=== PATIENT | male | born 1980 | race Caucasian/White ===

== ENCOUNTER 2016-06-24 09:56 | Emergency (ER) | payer MEDICAID ==
[~2016-06-24] VITALS: Ht 175.3 cm; Wt 113.4 kg
[2016-06-24 10:06] VITALS: BP 108/70
--- NOTE | 2016-06-24 10:12 | NUR ---
[facility] in [facility] - 06/24/16 at 1014 by [email or web address] Patient ambulated to bed 7. RN evaluating patient at bedside.
--- NOTE | 2016-06-24 10:13 | NUR ---
Patient ambulated to bed 4. RN evaluating patient at bedside.
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
[2016-06-24] MEDS ORDERED: diphenhydrAMINE 50 MG/ML VIAL IM ONE (10:35)
[2016-06-24] MEDS ORDERED: ONDANSETRON 4 MG/2 ML VIAL IM ONE (10:35)
[2016-06-24] MEDS ORDERED: NACL 0.9% 1,000 ML IV ONE (11:20)
--- NOTE | 2016-06-24 12:07 | NUR ---
PT SLEEPING COMFORTABLY IN BED AT THIS TIME, WILL CONTINUE TO MONITOR
[2016-06-24 12:17] VITALS: BP 115/72
== END 2016-06-24 12:16 | disposition home or self-care (01) ==
LOC: MED 09:56
DX: G44.209 Tension-type headache, unspecified, not intractable (principal); K21.9 Gastro-esophageal reflux disease without esophagitis
CPT/HCPCS: 96361; 96374; 96375; 99284; J1200; J2405; J7030

== ENCOUNTER 2022-01-06 16:31 | Emergency (ER) | payer OTHER ==
[~2022-01-06] VITALS: Ht 175.3 cm; Wt 119.3 kg
[2022-01-06 17:07] VITALS: BP 139/87
[2022-01-06] MEDS ORDERED: IBUP-2213 PO (18:07)
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
== END 2022-01-06 19:06 | disposition home or self-care (01) ==
LOC: MED 16:31
DX: S80.01XA Contusion of right knee, initial encounter (principal); S40.012A Contusion of left shoulder, initial encounter; K21.9 Gastro-esophageal reflux disease without esophagitis; Z79.899 Other long term (current) drug therapy; V89.2XXA Person injured in unspecified motor-vehicle accident, traffic, initial encounter; Y93.89 Activity, other specified; Y92.89 Other specified places as the place of occurrence of the external cause; Y99.8 Other external cause status
CPT/HCPCS: 73030; 73562; 73590; 99284